=== PATIENT | male | born 1975 | race American Indian/Alaskan Native ===

== ENCOUNTER 2017-07-07 00:16 | Emergency (ER) | payer MEDICAID, OTHER ==
[2017-07-07 00:43] VITALS: BP 135/84
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
[2017-07-07] MEDS ORDERED: Morphine 2 MG/ML Syringe IVPUSH ONE (00:55)
[2017-07-07] MEDS ORDERED: Ondansetron 4 MG/2 ML SDV IV ONE (00:55)
[2017-07-07 01:25] LABS: CHLORIDE,CL 103 mmol/L (101-111); SODIUM,NA 138 mmol/L (135-145)
[2017-07-07] MEDS ORDERED: HYDROmorphone 1 MG/ML Syringe IVPUSH ONE (02:15)
[2017-07-07] MEDS ORDERED: LORazepam 1 MG Tab ONE (03:10)
[2017-07-07] MEDS ORDERED: LORazepam 1 MG Tab PO ONE (03:10)
== END 2017-07-07 03:20 | disposition home or self-care (01) ==
LOC: DL.ED 00:16
DX: S62.640A Nondisplaced fracture of proximal phalanx of right index finger, initial encounter for closed fracture (principal); X58.XXXA Exposure to other specified factors, initial encounter
CPT/HCPCS: 36415; 70450; 70486; 72125; 80053; 85025; 96374; 96375; 99284; G0480; J1170; J2270; J2405; A9270-GY

== ENCOUNTER 2018-08-08 20:24 | Emergency (ER) | payer MEDICAID, OTHER | END 2018-08-08 21:16 | disposition left against medical advice (07) | LOC: DL.ED 20:24 | DX: Z53.21 Procedure and treatment not carried out due to patient leaving prior to being seen by health care provider (principal) ==

== ENCOUNTER 2021-01-18 06:02 | Emergency (ER) | payer MEDICAID, OTHER | END 2021-01-18 07:43 | LOC: DL.ED 06:02 | DX: Z53.21 Procedure and treatment not carried out due to patient leaving prior to being seen by health care provider (principal) ==

== ENCOUNTER 2024-02-12 20:45 | Emergency (ER) | payer MEDICAID ==
[2024-02-12 20:55] VITALS: BP 130/85; PULSE 80
[2024-02-12] MEDS: Take Home: Ondansetron 4 MG Tab.DIS, 5 Tab Pack PO ONE (21:44)
[2024-02-12] MEDS: Codeine/guaiFENesin 10-100 MG/5 ML Syrup 5 ML Cup PO ONE (21:44)
[2024-02-12] MEDS: Benzonatate 100 MG Cap PO ONE (21:44)
[2024-02-12] MEDS: Doxycycline Monohydrate 100 MG Cap PO ONE (21:44)
== END 2024-02-12 21:47 | disposition home or self-care (01) ==
LOC: DL.ED 20:45
DX: J18.9 Pneumonia, unspecified organism (principal)
CPT/HCPCS: 82947; 99284; A9270; Q0162

== ENCOUNTER 2024-07-18 14:05 | Emergency (ER) | payer MEDICAID ==
[~2024-07-18 14:05] MED LIST: Sodium Chloride 0.9% 10 ML Syringe FLUSH PRN
[2024-07-18 14:10] LABS: BASOPHILS PERCENT AUTO 0.6 % (0.0-1.0); EOSINOPHILS PERCENT AUTO 1.5 % (1.0-3.0); HEMATOCRIT 45.6 % (40.0-54.0); HEMOGLOBIN 15.8 g/dL (14.0-18.0); MEAN CORPUSCULAR HEMOGLOBIN 30.2 pg (27.0-34.0); MEAN CORPUSCULAR HGB CONC 34.6 g/dL (33.0-35.0); MONOCYTES PERCENT AUTO 8.7 % (2-8); NEUTROPHILS PERCENT AUTO 68.2 % (42.2-75.2); PLATELET COUNT,PLT 346 10^3/uL (150-450); RED BLOOD CELL COUNT 5.24 10^6/uL (4.6-6.2); WHITE BLOOD CELL COUNT,WBC 9.4 10^3/uL (5.0-10.0)
[2024-07-18 14:25] VITALS: BP 115/98; PULSE 143
[2024-07-18 14:37] LABS: A/G RATIO 1.2; ALANINE AMINOTRANSFERASE,ALT 24 U/L (16-63); ALBUMIN 4.5 g/dL (3.4-5.0); ALKALINE PHOSPHATASE 120 U/L (46-116); ANION GAP 16.5 mEq/L (7-13); ASPARTATE AMNIOTRANSFERASE,AST 19 U/L (15-37); BILIRUBIN TOTAL 0.6 mg/dL (0.2-1.0); BLOOD UREA NITROGEN,BUN 9 mg/dL (7-18); CALCIUM 9.2 mg/dL (8.5-10.1); CARBON DIOXIDE,CO2 24 mmol/L (21-32); CHLORIDE,CL 103 mmol/L (98-107); CREATININE 1.29 mg/dL (0.70-1.30); ETHANOL BLOOD MEDICAL 211 mg/dL (0); GLUCOSE RANDOM 145 mg/dL (70-99); MAGNESIUM 2.2 mg/dL (1.8-2.4); POTASSIUM,K 3.5 mmol/L (3.5-5.1); PROTEIN TOTAL,TP 8.1 g/dL (6.4-8.2); SODIUM,NA 140 mmol/L (136-145); TSH ULTRASENSITIVE 2.92 uIU/mL (0.36-3.74)
[2024-07-18 14:38] LABS: ESTIMATED GFR 69 mL/min (>=60)
[2024-07-18] MEDS ORDERED: Sodium Chloride 0.9% 10 ML Syringe FLUSH PRN (15:09)
[2024-07-18] MEDS ORDERED: Sodium Chloride 0.9% 1,000 ML IV ONE (15:09)
[2024-07-18 16:35] LABS: APPEARANCE,URINE CLEAR (CLEAR); BILIRUBIN,URINE NEGATIVE (NEGATIVE); COLOR,URINE YELLOW (YELLOW); GLUCOSE,URINE NEGATIVE (NEGATIVE); KETONES,URINE NEGATIVE (NEGATIVE); LEUKOCYTE ESTERASE,URINE NEGATIVE (NEGATIVE); NITRITE,URINE NEGATIVE (NEGATIVE); OCCULT BLOOD,URINE NEGATIVE (NEGATIVE); PROTEIN,URINE NEGATIVE (NEGATIVE); UROBILINOGEN,URINE 0.2 mg/dL (0.2-1.0)
[2024-07-18 16:38] LABS: AMPHETAMINES,URINE POSITIVE (NEGATIVE); BARBITURATES,URINE NEGATIVE (NEGATIVE); BENZODIAZEPINE,URINE NEGATIVE (NEGATIVE); MDMA (ECSTASY), URINE NEGATIVE (NEGATIVE); METHADONE,URINE NEGATIVE (NEGATIVE); METHAMPHETAMINES,URINE POSITIVE (NEGATIVE); OPIATES,URINE NEGATIVE (NEGATIVE); OXYCODONE,URINE NEGATIVE (NEGATIVE); PHENCYCLIDINE,URINE NEGATIVE (NEGATIVE); TCA,URINE NEGATIVE (NEGATIVE)
== END 2024-07-18 17:10 | disposition home or self-care (01) ==
LOC: DL.ED 14:05
DX: R45.851 Suicidal ideations (principal)
CPT/HCPCS: 36415; 80053; 80305; 80307; 81003; 83735; 84443; 85025; 87635; 99285; C1758; U0002

== ENCOUNTER 2025-05-17 21:13 | Emergency (ER) | payer MEDICAID ==
[2025-05-17] MEDS ORDERED: Sodium Chloride 0.9% 10 ML Syringe FLUSH PRN (21:25)
[2025-05-17 21:38] LABS: BASOPHILS PERCENT AUTO 0.7 % (0.0-1.0); EOSINOPHILS PERCENT AUTO 4.8 % (1.0-3.0); HEMATOCRIT 42.7 % (40.0-54.0); HEMOGLOBIN 14.9 g/dL (14.0-18.0); LYMPHOCYTES PERCENT AUTO 31.9 % (20.5-50.1); MEAN CORPUSCULAR HEMOGLOBIN 30.5 pg (27.0-34.0); MEAN CORPUSCULAR HGB CONC 34.9 g/dL (33.0-35.0); MEAN CORPUSCULAR VOLUME 87.3 fL (80-100); MONOCYTES PERCENT AUTO 7.7 % (2-8); NEUTROPHILS PERCENT AUTO 54.9 % (42.2-75.2); PLATELET COUNT,PLT 207 10^3/uL (150-450); RED BLOOD CELL COUNT 4.89 10^6/uL (4.6-6.2)
[2025-05-17 21:57] LABS: ALANINE AMINOTRANSFERASE,ALT 25 U/L (16-63); ALBUMIN 3.3 g/dL (3.4-5.0); ALKALINE PHOSPHATASE 148 U/L (46-116); ANION GAP 6.8 mEq/L (7-13); ASPARTATE AMNIOTRANSFERASE,AST 16 U/L (15-37); BILIRUBIN TOTAL 0.3 mg/dL (0.2-1.0); BLOOD UREA NITROGEN,BUN 5 mg/dL (7-18); BUN/CREATININE RATIO 4.4 (No establ ref range); CALCIUM 8.4 mg/dL (8.5-10.1); CARBON DIOXIDE,CO2 33 mmol/L (21-32); CHLORIDE,CL 108 mmol/L (98-107); CREATININE 1.14 mg/dL (0.70-1.30); EST CRCL DRUG DOSING (CG) 74.89 mL/min; GLUCOSE RANDOM 97 mg/dL (70-99); MAGNESIUM 1.7 mg/dL (1.8-2.4); POTASSIUM,K 3.8 mmol/L (3.5-5.1); PROTEIN TOTAL,TP 6.2 g/dL (6.4-8.2); SODIUM,NA 144 mmol/L (136-145)
[2025-05-17 22:14] LABS: A/G RATIO 1.14; C-REACTIVE PROTEIN < 0.50 ng/dL (<=0.50); ESTIMATED GFR 80 mL/min (>=60)
[2025-05-17 22:23] VITALS: BP 141/98
[2025-05-17] MEDS: Dexamethasone 4 MG/ML SDV IM ONE (22:25)
[2025-05-17 22:38] VITALS: PULSE 81
== END 2025-05-17 22:29 | disposition home or self-care (01) ==
LOC: DL.ED 21:13
DX: G51.0 Bell's palsy (principal)
CPT/HCPCS: 36415; 70450; 80053; 82947; 83735; 85025; 86140; 96372; 99284; J1100